=== PATIENT | female | born 1965 | race Caucasian/White ===

== ENCOUNTER 2016-12-02 06:32 | Emergency (ER) | payer OTHER ==
[~2016-12-02] VITALS: Ht 162.6 cm; Wt 63.6 kg
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
[2016-12-02 07:01] VITALS: BP 162/103; PULSE 105; RESP 16; O2SAT 97
[2016-12-02] MEDS ORDERED: LISI10TA PO (07:21)
[2016-12-02] MEDS ORDERED: OMEP20TA86 PO (07:21)
[2016-12-02] MEDS ORDERED: Pantoprazole 20 mg ER24 Tablet PO ONE (11:55)
[2016-12-02 13:20] VITALS: BP 134/89; PULSE 89; RESP 16; O2SAT 97
== END 2016-12-02 13:21 | disposition home or self-care (01) ==
LOC: SED 06:32
DX: F15.20 Other stimulant dependence, uncomplicated (principal); F32.9 Major depressive disorder, single episode, unspecified; Z91.410 Personal history of adult physical and sexual abuse; I10 Essential (primary) hypertension; F17.200 Nicotine dependence, unspecified, uncomplicated; Z88.5 Allergy status to narcotic agent; Z91.048 Other nonmedicinal substance allergy status